=== PATIENT | female | born 1980 | race Caucasian/White ===

== ENCOUNTER 2016-11-03 20:35 | Emergency (ER) | payer OTHER ==
[~2016-11-03] VITALS: Ht 160 cm; Wt 72.6 kg
[~2016-11-03 20:35] MED LIST: CIPROFLOXACIN500 MG PO; DEPAKOTE500 MG PO; PYRIDIUM200 MG PO; XANAX1 MG PO
[2016-11-03 21:20] LABS: BASO # 0.1 10*3/uL (0.0-0.1); BASO % 1.2 % (0.0-1.0); EOS # 0.4 10*3/uL (0.0-0.4); EOS % 7.1 % (1.0-4.0); HEMATOCRIT 41.7 % (37.0-47.0); HEMOGLOBIN 13.7 g/dl (12.0-16.0); LYMPH # 2.4 10*3/uL (1.3-4.4); LYMPH % 45.7 % (27.0-41.0); MEAN CELL VOLUME 94.3 fl (81.0-99.0); MEAN CORPUSCULAR HGB CONC 32.9 g/dl (33.0-37.0); MEAN PLATELET VOLUME 11.2 fl (9.6-12.3); MONO # 0.6 10*3/uL (0.1-1.0); MONO % 12.1 % (3.0-9.0); NEUT # 1.8 10*3/uL (2.3-7.9); NEUT % 33.7 % (47.0-73.0); PLATELET COUNT AUTOMATED 153 10*3/uL (130-400); RED BLOOD COUNT 4.42 10*6/uL (4.10-5.10); WHITE BLOOD COUNT 5.2 10*3/uL (4.8-10.8)
[2016-11-03 21:32] LABS: BILIRUBIN NEGATIVE (NEGATIVE); BLOOD TRACE-INTACT (NEGATIVE); CLARITY CLEAR (CLEAR); COLOR YELLOW (YELLOW); GLUCOSE NEGATIVE (NEGATIVE); KETONE NEGATIVE (NEGATIVE); LEUKO ESTERASE NEGATIVE (NEGATIVE); NITRITE NEGATIVE (NEGATIVE); SPECIFIC GRAVITY <= 1.005 (1.005-1.030); UROBILINOGEN 0.2 E.U./dl (0.2-1.0)
[2016-11-03 21:35] LABS: ALBUMIN 3.4 gm/dl (3.1-4.5); ALKALINE PHOSPHATASE 63 U/L (45-117); BUN 5 mg/dl (7-24); CHLORIDE 106 mmol/L (98-107); CREATININE 0.78 mg/dL (0.55-1.02); LIPASE 135 U/L (73-393); POTASSIUM 3.7 mmol/L (3.5-5.1); SGOT/AST 10 IU/L (3-35); SGPT/ALT 15 U/L (12-78); SODIUM 139 mmol/L (136-145); TOTAL PROTEIN 7.2 gm/dL (6.4-8.2)
[2016-11-03 21:37] LABS: B-hCG (QUALITATIVE) NEGATIVE (NEGATIVE)
[2016-11-03 21:40] LABS: BACTERIA TRACE; WBC 0-2 wbc/hpf (0-5)
[2016-11-03 22:19] LABS: URINE AMPHETAMINES < 1000 (1000ng/ml); URINE BARBITURATES < 200 (200ng/ml); URINE BENZODIAZEPINES < 200 (200ng/ml); URINE CANNABINOIDS (THC) < 50 (50ng/ml); URINE COCAINE < 300 (300ng/ml); URINE METHADONE < 300 (300ng/ml); URINE OPIATES > 300 (300ng/ml)
[2016-11-03 22:20] LABS: URINE PHENCYCLIDINE < 25 (25ng/ml)
[2016-11-04] MEDS ORDERED: ZOFRAN ODT4 MG SL (01:36)
[2016-11-04] MEDS ORDERED: REGLAN5 MG PO (01:36)
== END 2016-11-04 02:00 | disposition home or self-care (01) ==
LOC: ED 20:35
PROVIDERS: Emergency Medicine Emergency Medical Services
DX: R10.11 Right upper quadrant pain (principal); F17.200 Nicotine dependence, unspecified, uncomplicated; Z79.899 Other long term (current) drug therapy; Z88.5 Allergy status to narcotic agent; Z88.0 Allergy status to penicillin; Z88.6 Allergy status to analgesic agent

== ENCOUNTER → 2016-11-06 | Outpatient (CLI) | payer OTHER ==
[~2016-11-06] MED LIST changes: +REGLAN5 MG PO; +ZOFRAN ODT4 MG SL
== END | disposition home or self-care (01) ==
LOC: US 05:53
DX: R10.11 Right upper quadrant pain (principal); R11.10 Vomiting, unspecified

== ENCOUNTER 2017-07-16 20:26 | Inpatient (IN) | payer OTHER ==
[~2017-07-16] VITALS: Ht 160 cm; Wt 75.0 kg
--- NOTE | ~2017-07-16 | PR ---
[place], [place] PROGRESS NOTE NAME: MARISOL BHAGAT UNIT #: [id number] ROOM: 530 DOCTOR: ABBY WEST MD,ABDULLAHI BIRTHDATE: [birth year] DOS: 07/19/2017 PULMONARY PROGRESS NOTE SUBJECTIVE: The patient noted comfortable at this time without any acute distress. She has not been noted symptoms of chest pain or abdominal pain. The patient has been getting intravenous antibiotic for acute pneumonia and other respiratory symptoms as well with tracheobronchitis. She has been started on Tamiflu for suspected influenza infection as well. She has not been noted any symptoms of fever or chills at this time. Denies symptoms of hemoptysis or chest pain. She would like to be discharged home as soon as possible. REVIEW OF SYSTEMS: She was denying any symptoms of nausea, vomiting. General weakness was noted. There were no symptoms of headache or diplopia. Remaining systems were reviewed, they were noted all negative. OBJECTIVE: VITAL SIGNS: Normal temperature, respiratory rate 20, heart rate of 78, blood pressure 123/76. Pulse oxygen saturation on 2 liters nasal cannula 91% saturation. HEENT: Examination shows head was atraumatic. Eyes nonicterus. NECK: Supple. CARDIOVASCULAR: S1, S2 audible. LUNGS: Noted with [id number] decreased breath sounds without any crackles. There is no wheezing. ABDOMEN: Soft, nontender. EXTREMITIES: Without any acute edema. LABORATORY DATA: The cultures brought from 16/07/2017 showed no bacterial growth. Rapid influenza testing of the nasopharyngeal area was noted negative for influenza A and B. Otherwise, ____ was obtained, which was pending. The sputum Gram stain of the patient from yesterday noted many white blood cells, moderate epithelial cells, few gram-positive cocci in pairs and chains and clusters with pending culture results. CTA of the chest was ordered by the primary care attending that was yesterday reviewed, does not show any evidence of pulmonary embolism. The patient noted patchy ground glass opacity noted in the lungs, mostly in the central distribution involving most of the low for this patient. There were no pleural fluid. There was no lymphadenopathy in the mediastinum. IMPRESSION: 1. Acute pneumonia, atypical including viral still considered and treated the patient with antiviral treatment as well as bacterial infection, treated with antibiotics. 2. Resolving ____ bronchial asthma as well. PLAN OF THERAPY: Continuation of the current plan of management with bronchodilators, oxygen supplementation. Monitor respiratory status closely. Continuation of other supportive therapy, plan of management and treatment. Usual care. Additional treatment changes will be made for the patient based on [place], [place] PROGRESS NOTE NAME: MARISOL BHAGAT UNIT #: [id number] ROOM: [facility] DOCTOR: ABBY WEST MD,ABDULLAHI BIRTHDATE: [birth year] the progression of the illness. ABDULLAHI MORA MD CM:PNTRANS [id number] ABDULLAHI WEST MD 07/20/17 0141 interface
--- NOTE | ~2017-07-16 | CON ---
[employer], [place] REPORT OF CONSULTATION NAME: MARISOL BHAGAT UNIT #: [id number] ROOM: 530 DOCTOR: ABDULLAHI STEIN MD BIRTHDATE: [birth year] DOS: 07/18/2017 PULMONARY CONSULTATION, EVALUATION, AND MANAGEMENT CONSULTATION REQUESTED BY: The hospitalist service. REASON FOR CONSULTATION: For assessment of the current ongoing acute respiratory complaints and also assess the patient for acute pneumonia. HISTORY OF PRESENT ILLNESS: This is a 36-year-old white female patient who has been admitted to the hospital on 07/16/2017 under the hospitalist services. The patient came into the Emergency Room, she started having increased symptoms of shortness of breath for the past 3 days associated with chest congestion and cough. The patient stated the cough has been noted nonproductive initially and currently started smoking cigarettes. The patient denies any symptoms of hemoptysis with that. The chest tightness with some wheezing was also reported by the patient. The patient's symptoms were also associated with some symptoms of fever or chills and night sweats as well as sore throat. She does have complaints of a chest pain previously with the deep breathing. REVIEW OF SYSTEMS: CONSTITUTIONAL SYMPTOMS: Fatigue and tiredness with symptoms of fever and chills noted at home. EYES: Denies any burning, redness, or discharge. EARS, NOSE, AND THROAT SYMPTOMS: Sore throat also reported by the patient on admission. GASTROINTESTINAL SYMPTOMS: Denies dysphagia, nausea, vomiting, diarrhea, abdominal pain, hematemesis, melena, or hematochezia. GENITOURINARY SYMPTOMS: Denies dysuria, suprapubic pain, or hematuria. MUSCULOSKELETAL SYMPTOMS: No acute joint pain, redness, or tenderness. SKIN: Denies abnormal lesions or rashes. CENTRAL NERVOUS SYSTEM: Denies dizziness, headache, diplopia, syncopal episodes, or tingling sensation of the extremities. Remaining systems were reviewed and they were noted all negative. PAST MEDICAL HISTORY: Known with: 1. COPD. 2. Crohn's disease. 3. Migraine headache. 4. Nicotine dependence. 5. Bipolar disorder with depression. PAST SURGICAL HISTORY: 1. Tubal ligation. 2. . SOCIAL HISTORY: The patient is . Currently smoking half a pack of cigarettes per day and has 2 children. She lives with a significant other at this time for 15 years. [employer], [place] REPORT OF CONSULTATION NAME: MARISOL BHAGAT UNIT #: [id number] ROOM: 530 DOCTOR: ABBY WEST MD,ABDULLAHI BIRTHDATE: [birth year] FAMILY HISTORY: Father with history of schizophrenia. Mother with lung cancer. HOME MEDICATIONS: Noted use of [place] and Imitrex. DRUG ALLERGY HISTORY: RECORDED ALLERGIES FOR CODEINE, PENICILLIN, PREDNISONE, AND TRAMADOL. PHYSICAL EXAMINATION: GENERAL: This is a 36-year-old female who has been currently noted resting on the bed without any acute distress at this time of assessment. Height of 5 feet 3 inches, weight of 165 pounds, and BMI 29.3. VITAL SIGNS: Normal temperature, respiratory rate 16-20, heart rate of 112-113, sinus tachycardia; and blood pressure 126/74-110/64. Pulse oxygen saturation on 2-1/2 liters nasal cannula was noted as 96% saturation. HEENT: On examination, head was atraumatic. Eyes, nonicterus. NECK: Supple. CARDIOVASCULAR SYSTEM: S1, S2 is audible. LUNGS: The patient was noted with moderate decreased breath sounds with expiratory wheezing without any crackles heard. ABDOMEN: Soft and nontender. Bowel sounds present. EXTREMITIES: The patient was noted without any edema, clubbing, or cyanosis. VISIBLE SKIN: No lesions or rashes. MUSCULOSKELETAL SYMPTOMS: The patient without any acute deformities. CENTRAL NERVOUS SYSTEM: Cranial nerves 2-12 intact. No focal deficit. MUSCULOSKELETAL EXAMINATION: Noted without any auscultated deformities. LABORATORY DATA: The CBC that was done on admission, normal WBC count, hemoglobin and hematocrit normal, and platelet count normal. CMP of the patient on 07/16/2017 noted normal BUN and creatinine. Lactic acid 1.3. CBC of the patient on 07/17/2017 was noted as normal CBC. The CMP of the patient that was done this morning, glucose 161, phosphorus 1.2, otherwise normal. PT and INR was noted normal this morning. DIAGNOSTIC DATA: The chest x-ray of the patient was suggestive of possibility of interstitial infiltration in the lower lungs. IMPRESSION: 1. The patient who has been currently admitted to the hospital was noted with current symptoms, which has been noted significant constitutional symptoms ongoing for the past few days. 2. Possibility of influenza infection with a viral infection. The current cause of the pneumonia could not be excluded. 3. Evidence of acute exacerbation of chronic obstructive pulmonary disease. 4. History of chronic nicotine dependence as well. 5. History of ALLERGY REPORTED TO THE PREDNISONE. PLAN OF MANAGEMENT: The patient has been ordered the assessment for the viral etiology including influenza and other viral etiology, which was available as a part of the panel for the patient to be ordered with nasopharyngeal swab. CT scan of the chest will be ordered for most definitive assessment of the [employer], [place] REPORT OF CONSULTATION NAME: MARISOL BHGAAT UNIT #: [id number] ROOM: [facility] DOCTOR: ABBY WEST MD,ABDULLAHI BIRTHDATE: [birth year] pneumonic infiltration. Decrease the use of Tamiflu for the patient until the influenza infection is excluded. Use the nicotine placement patches for this patient as well. Order the sputum for Gram stain and culture as well. Continue current antibiotics for the management of current pneumonia. Order the urine for Legionella antigen as well and the Streptococcus pneumoniae antigen in the urine. Additional treatment changes will be ordered based on the progression of the illness. Thanks for allowing me to participate in the care of this patient. ABDULLAHI MORA MD CM:CONSTR:REPORT OF CONSULTATION 1417 07/18/17 [id number] interface
--- NOTE | ~2017-07-16 | PR ---
[place], [place] PROGRESS NOTE NAME: MARISOL BHAGAT UNIT #: [id number] ROOM: 530 DOCTOR: ABBY WEST MD,ABDULLAHI BIRTHDATE: [birth year] DOS: 07/20/2017 SUBJECTIVE: The patient has been noted quite comfortable at this time, resting in the bed, sitting on the chair, eager to be discharged. There was no coughing, shortness of breath, chest pain, other acute symptoms were reported by the patient. Denies symptoms of nausea and vomiting. OBJECTIVE: VITAL SIGNS: For the patient which were recorded at noon, respiratory rate of 18, temperature normal, heart rate 98, blood pressure 101/69. The pulse oxygen saturation on room air 99% saturation. HEENT: Head was atraumatic. Eyes nonicterus. NECK: Supple. CARDIOVASCULAR: S1, S2 audible. LUNGS: Noted clear to auscultation bilaterally. ABDOMEN: Soft, nontender. Bowel sounds present. EXTREMITIES: Without any acute edema. IMPRESSION: Resolving acute exacerbation of bronchial asthma as well as atypical pneumonia for this patient as well. PLAN OF THERAPY: The patient could be discharged home on oral medication. Outpatient followup was recommended. Abstinence of tobacco use was recommended strongly for the patient for future. ABDULLAHI MORA MD CM:PNTRANS [phone] ABDULLAHI WEST MD 07/22/17 0100 interface
[2017-07-16 20:28] VITALS: BP 131/90
[2017-07-16 21:05] LABS: BASO # 0.1 10*3/uL (0.0-0.1); BASO % 0.8 % (0.0-1.0); EOS # 0.4 10*3/uL (0.0-0.4); HEMOGLOBIN 13.6 g/dl (12.0-16.0); LYMPH # 1.8 10*3/uL (1.3-4.4); LYMPH % 18.2 % (27.0-41.0); MEAN CELL VOLUME 93.8 fl (81.0-99.0); MEAN CORPUSCULAR HGB 31.1 pg (27.0-31.0); MEAN CORPUSCULAR HGB CONC 33.2 g/dl (33.0-37.0); MEAN PLATELET VOLUME 11.2 fl (9.6-12.3); MONO # 0.7 10*3/uL (0.1-1.0); MONO % 7.2 % (3.0-9.0); NEUT # 6.9 10*3/uL (2.3-7.9); NEUT % 69.6 % (47.0-73.0); PLATELET COUNT AUTOMATED 172 10*3/uL (130-400); RED BLOOD COUNT 4.37 10*6/uL (4.10-5.10); RED CELL DISTRI WIDTH 11.9 % (0-14.5); WHITE BLOOD COUNT 9.9 10*3/uL (4.8-10.8)
[2017-07-16 21:19] LABS: ALBUMIN 3.2 gm/dl (3.1-4.5); ALKALINE PHOSPHATASE 64 U/L (45-117); BUN 8 mg/dl (7-24); CHLORIDE 105 mmol/L (98-107); CREATININE 0.62 mg/dL (0.55-1.02); POTASSIUM 3.5 mmol/L (3.5-5.1); SGOT/AST 26 IU/L (3-35); SGPT/ALT 27 U/L (12-78); SODIUM 139 mmol/L (136-145); TOTAL PROTEIN 6.5 gm/dL (6.4-8.2)
[2017-07-16 22:00] VITALS: BP 122/77
[2017-07-16 23:00] VITALS: BP 118/72
[2017-07-17 00:30] VITALS: BP 129/82
[2017-07-17 05:51] LABS: HEMATOCRIT 39.5 % (37.0-47.0); HEMOGLOBIN 12.9 g/dl (12.0-16.0); MEAN CORPUSCULAR HGB 30.7 pg (27.0-31.0); MEAN CORPUSCULAR HGB CONC 32.7 g/dl (33.0-37.0); MEAN PLATELET VOLUME 11.5 fl (9.6-12.3); PLATELET COUNT AUTOMATED 171 10*3/uL (130-400); RED CELL DISTRI WIDTH 12.1 % (0-14.5); WHITE BLOOD COUNT 8.6 10*3/uL (4.8-10.8)
[2017-07-17 06:00] LABS: ALBUMIN 2.9 gm/dl (3.1-4.5); ALKALINE PHOSPHATASE 59 U/L (45-117); BUN 6 mg/dl (7-24); CHLORIDE 108 mmol/L (98-107); CHOLESTEROL 122 mg/dL (<200); CREATININE 0.64 mg/dL (0.55-1.02); HDL CHOLESTEROL 56 mg/dl (40-60); LDL CHOLESTEROL 60 mg/dL (9-159); PHOSPHOROUS 1.2 mg/dL (2.5-4.9); POTASSIUM 3.8 mmol/L (3.5-5.1); SGOT/AST 22 IU/L (3-35); SGPT/ALT 28 U/L (12-78); SODIUM 140 mmol/L (136-145); TOTAL PROTEIN 6.5 gm/dL (6.4-8.2); TRIGLYCERIDES 32 mg/dl (<150); VLDL CHOLESTEROL 6 mg/dL (6-40)
[2017-07-17 06:05] LABS: THYROID STIM HORMONE (HS) 0.308 uIU/ml (0.358-4.75)
[2017-07-17 06:15] LABS: TOTAL CELLS COUNTED 100 #CELLS
[2017-07-17 06:16] LABS: PLATELET SUFFICIENCY NORMAL (NORMAL)
[2017-07-17 07:32] LABS: VITAMIN D, 25-HYDROXY 20.4 ng/mL (30-100)
[2017-07-17 08:00] VITALS: BP 128/78
[2017-07-17] MEDS ORDERED: NORCO 5-325 TA1 EACH PO (09:52)
[2017-07-17] MEDS ORDERED: IMITREX50 MG PO (09:54)
[2017-07-17 12:00] VITALS: BP 114/63
[2017-07-17 16:00] VITALS: BP 126/74
[2017-07-17 20:00] VITALS: BP 111/72
[2017-07-18] VITALS: BP 110/64
[2017-07-18 08:00] VITALS: BP 124/74
[2017-07-18 12:00] VITALS: BP 113/85
[2017-07-18 16:00] VITALS: BP 151/92
[2017-07-18 20:00] VITALS: BP 117/78
[2017-07-19] VITALS: BP 116/75
[2017-07-19 08:00] VITALS: BP 123/76
[2017-07-19 12:00] VITALS: BP 119/78
[2017-07-19 16:00] VITALS: BP 124/82
[2017-07-19 20:00] VITALS: BP 125/66
[2017-07-20] VITALS: BP 106/57
[2017-07-20 06:24] LABS: BASO % 0.1 % (0.0-1.0); EOS % 0.1 % (1.0-4.0); HEMATOCRIT 37.5 % (37.0-47.0); HEMOGLOBIN 12.2 g/dl (12.0-16.0); LYMPH # 1.3 10*3/uL (1.3-4.4); LYMPH % 9.9 % (27.0-41.0); MEAN CELL VOLUME 95.2 fl (81.0-99.0); MEAN CORPUSCULAR HGB CONC 32.5 g/dl (33.0-37.0); MONO # 0.9 10*3/uL (0.1-1.0); MONO % 6.4 % (3.0-9.0); NEUT # 11.1 10*3/uL (2.3-7.9); PLATELET COUNT AUTOMATED 234 10*3/uL (130-400); RED BLOOD COUNT 3.94 10*6/uL (4.10-5.10); RED CELL DISTRI WIDTH 12.3 % (0-14.5); WHITE BLOOD COUNT 13.6 10*3/uL (4.8-10.8)
[2017-07-20 12:28] VITALS: BP 101/69
[2017-07-20] MEDS ORDERED: PREDNISONE10 MG PO (13:40)
[2017-07-20] MEDS ORDERED: TAMIFLU 75MG CA75 MG PO (13:40)
[2017-07-20] MEDS ORDERED: LEVAQUIN750 M1 PO (13:40)
[2017-07-20] MEDS ORDERED: B12100 MC1 PO (13:40)
[2017-07-20] MEDS ORDERED: VITAMIN D22000 UNIT PO (13:51)
[2017-07-20] MEDS ORDERED: NORCO 5-325 TA1 EACH PO (14:32)
[2017-07-20] MEDS ORDERED: VENTOLIN 02.5 MG/3 M INH (14:50)
== END 2017-07-20 14:55 | disposition home or self-care (01) | DRG 871 ==
LOC: ED 20:26 → EDHOLD 23:32 → 5E 23:32
PROVIDERS: Emergency Medicine; Internal Medicine; Internal Medicine Hospice and Palliative Medicine
DX: A41.9 Sepsis, unspecified organism (principal); J96.01 Acute respiratory failure with hypoxia; J44.0 Chronic obstructive pulmonary disease with (acute) lower respiratory infection; J15.6 Pneumonia due to other Gram-negative bacteria; E44.1 Mild protein-calorie malnutrition; J45.901 Unspecified asthma with (acute) exacerbation; E83.39 Other disorders of phosphorus metabolism; K50.90 Crohn's disease, unspecified, without complications; J44.1 Chronic obstructive pulmonary disease with (acute) exacerbation; F31.30 Bipolar disorder, current episode depressed, mild or moderate severity, unspecified; E53.8 Deficiency of other specified B group vitamins; F17.210 Nicotine dependence, cigarettes, uncomplicated; E87.8 Other disorders of electrolyte and fluid balance, not elsewhere classified; D72.810 Lymphocytopenia; R73.9 Hyperglycemia, unspecified; E66.3 Overweight; G43.909 Migraine, unspecified, not intractable, without status migrainosus; Z68.29 Body mass index [BMI] 29.0-29.9, adult; Z88.6 Allergy status to analgesic agent; Z88.5 Allergy status to narcotic agent; Z71.6 Tobacco abuse counseling; Z88.0 Allergy status to penicillin; Z88.8 Allergy status to other drugs, medicaments and biological substances; Z79.01 Long term (current) use of anticoagulants; Z79.899 Other long term (current) drug therapy; Z98.891 History of uterine scar from previous surgery; Z98.51 Tubal ligation status; Z81.8 Family history of other mental and behavioral disorders; Z80.1 Family history of malignant neoplasm of trachea, bronchus and lung

== ENCOUNTER 2020-09-15 00:05 | Emergency (ER) | payer OTHER ==
[~2020-09-15] VITALS: Ht 160 cm; Wt 70.8 kg
[~2020-09-15 00:05] MED LIST changes: +B12100 MC1 PO; +DOXYCYCLINE100 M3 PO; +IMITREX50 MG PO; +LEVAQUIN750 M1 PO; +NORCO 5-325 TA1 EACH PO; +PREDNISONE10 MG PO; +PROAIR HFA8.5 GM INH; +TAMIFLU 75MG CA75 MG PO; +TESSALON PERLE100 M1 PO; +VENTOLIN 02.5 MG/3 M INH; +VITAMIN D22000 UNIT PO
== END 2020-09-15 00:42 | disposition left against medical advice (07) ==
LOC: ED 00:05
DX: J40 Bronchitis, not specified as acute or chronic (principal); F17.200 Nicotine dependence, unspecified, uncomplicated; Z98.890 Other specified postprocedural states; Z98.51 Tubal ligation status; Z79.899 Other long term (current) drug therapy; Z88.5 Allergy status to narcotic agent; Z88.0 Allergy status to penicillin; Z88.6 Allergy status to analgesic agent

== ENCOUNTER 2022-12-15 14:30 | Emergency (ER) | payer OTHER ==
[~2022-12-15] VITALS: Ht 160 cm; Wt 72.6 kg
[2022-12-15 15:27] LABS: BASO # 0.1 10*3/uL (0.0-0.1); BASO % 0.7 % (0.0-1.0); EOS # 0.4 10*3/uL (0.0-0.4); EOS % 3.7 % (1.0-4.0); HEMATOCRIT 39.1 % (37.0-47.0); LYMPH # 2.6 10*3/uL (1.3-4.4); LYMPH % 24.9 % (27.0-41.0); MEAN CELL VOLUME 96.5 fl (81.0-99.0); MEAN CORPUSCULAR HGB 31.1 pg (27.0-31.0); MEAN CORPUSCULAR HGB CONC 32.2 g/dl (33.0-37.0); MEAN PLATELET VOLUME 11.1 fl (9.6-12.3); MONO # 0.9 10*3/uL (0.1-1.0); MONO % 8.8 % (3.0-9.0); NEUT # 6.5 10*3/uL (2.3-7.9); NEUT % 61.7 % (47.0-73.0); PLATELET COUNT AUTOMATED 216 10*3/uL (130-400); RED BLOOD COUNT 4.05 10*6/uL (4.10-5.10); RED CELL DISTRI WIDTH 12.1 % (0-14.5); WHITE BLOOD COUNT 10.5 10*3/uL (4.8-10.8)
[2022-12-15 15:48] LABS: ALKALINE PHOSPHATASE 66 U/L (46-116); BUN 5 mg/dl (9-23); CHLORIDE 103 mmol/L (98-107); POTASSIUM 3.8 mmol/L (3.4-5.1); SGPT/ALT 51 U/L (5-49); TOTAL PROTEIN 6.7 gm/dL (6.0-8.0)
[2022-12-15] MEDS ORDERED: CLINDAMYCIN HC300 MG PO (16:57)
[2022-12-15] MEDS ORDERED: VARENICLINE TART1 MG PO (16:57)
[2022-12-15] MEDS ORDERED: CEPHALEXIN500 M1 PO (16:57)
== END 2022-12-15 17:47 | disposition home or self-care (01) ==
LOC: ED 14:30
PROVIDERS: Emergency Medicine
DX: L03.211 Cellulitis of face (principal); J44.9 Chronic obstructive pulmonary disease, unspecified; I10 Essential (primary) hypertension; F31.9 Bipolar disorder, unspecified; F41.9 Anxiety disorder, unspecified; Z88.0 Allergy status to penicillin; Z88.5 Allergy status to narcotic agent; Z88.8 Allergy status to other drugs, medicaments and biological substances; Z98.890 Other specified postprocedural states; Z98.51 Tubal ligation status; F17.200 Nicotine dependence, unspecified, uncomplicated

== ENCOUNTER 2023-09-08 13:29 | Emergency (ER) | payer OTHER ==
[~2023-09-08 13:29] MED LIST changes: +CEPHALEXIN500 M1 PO; +CLINDAMYCIN HC300 MG PO; +VARENICLINE TART1 MG PO
== END 2023-09-08 14:39 | disposition left against medical advice (07) ==
LOC: ED 13:29
DX: R05.9 Cough, unspecified (principal); R06.02 Shortness of breath; Z88.0 Allergy status to penicillin; Z88.5 Allergy status to narcotic agent; Z88.6 Allergy status to analgesic agent; Z53.21 Procedure and treatment not carried out due to patient leaving prior to being seen by health care provider

== ENCOUNTER → 2023-11-18 | Outpatient (CLI) | payer OTHER ==
[2023-11-18 16:12] LABS: BASO # 0.1 10*3/uL (0.0-0.1); BASO % 0.7 % (0.0-1.0); EOS # 0.3 10*3/uL (0.0-0.4); HEMATOCRIT 41.9 % (37.0-47.0); LYMPH # 2.4 10*3/uL (1.3-4.4); LYMPH % 29.2 % (27.0-41.0); MEAN CELL VOLUME 93.5 fl (81.0-99.0); MEAN CORPUSCULAR HGB 31.3 pg (27.0-31.0); MEAN CORPUSCULAR HGB CONC 33.4 g/dl (33.0-37.0); MEAN PLATELET VOLUME 10.6 fl (9.6-12.3); MONO # 0.6 10*3/uL (0.1-1.0); MONO % 7.2 % (3.0-9.0); NEUT # 4.9 10*3/uL (2.3-7.9); NEUT % 58.7 % (47.0-73.0); PLATELET COUNT AUTOMATED 176 10*3/uL (130-400); RED BLOOD COUNT 4.48 10*6/uL (4.10-5.10); RED CELL DISTRI WIDTH 12.6 % (0-14.5); WHITE BLOOD COUNT 8.3 10*3/uL (4.8-10.8)
[2023-11-18 16:36] LABS: ALKALINE PHOSPHATASE 61 U/L (46-116); BUN 12 mg/dl (9-23); CHLORIDE 106 mmol/L (98-107); CHOLESTEROL 98 mg/dL (<200); LDL CHOLESTEROL 34 mg/dL (9-159); POTASSIUM 3.9 mmol/L (3.4-5.1); SGPT/ALT 46 U/L (5-49); TOTAL PROTEIN 7.1 gm/dL (6.0-8.0); TRIGLYCERIDES 59 mg/dl (<150)
== END | disposition home or self-care (01) ==
LOC: LAB 15:36
PROVIDERS: ATTEND Nurse Practitioner Family
DX: Z11.4 Encounter for screening for human immunodeficiency virus [HIV] (principal); J44.9 Chronic obstructive pulmonary disease, unspecified; Z00.00 Encounter for general adult medical examination without abnormal findings; E66.9 Obesity, unspecified; K50.911 Crohn's disease, unspecified, with rectal bleeding

== ENCOUNTER 2024-04-24 15:04 | Emergency (ER) | payer OTHER ==
[~2024-04-24] VITALS: Ht 160 cm; Wt 83.9 kg
[2024-04-24 16:00] LABS: BASO # 0.1 10*3/uL (0.0-0.1); BASO % 0.7 % (0.0-1.0); EOS # 0.3 10*3/uL (0.0-0.4); EOS % 3.5 % (1.0-4.0); HEMATOCRIT 41.6 % (37.0-47.0); MEAN CELL VOLUME 93.5 fl (81.0-99.0); MEAN CORPUSCULAR HGB 30.3 pg (27.0-31.0); MEAN CORPUSCULAR HGB CONC 32.5 g/dl (33.0-37.0); MEAN PLATELET VOLUME 10.9 fl (9.6-12.3); MONO # 0.5 10*3/uL (0.1-1.0); NEUT # 5.4 10*3/uL (2.3-7.9); NEUT % 62.7 % (47.0-73.0); PLATELET COUNT AUTOMATED 198 10*3/uL (130-400); RED BLOOD COUNT 4.45 10*6/uL (4.10-5.10); WHITE BLOOD COUNT 8.6 10*3/uL (4.8-10.8)
[2024-04-24 16:26] LABS: BUN 10 mg/dl (9-23); CHLORIDE 106 mmol/L (98-107); POTASSIUM 4.1 mmol/L (3.4-5.1)
== END 2024-04-24 18:11 | disposition left against medical advice (07) ==
LOC: ED 15:04
PROVIDERS: Nurse Practitioner Family
DX: S89.92XA Unspecified injury of left lower leg, initial encounter (principal); S61.402A Unspecified open wound of left hand, initial encounter; S61.401A Unspecified open wound of right hand, initial encounter; S51.802A Unspecified open wound of left forearm, initial encounter; S51.801A Unspecified open wound of right forearm, initial encounter; S81.002A Unspecified open wound, left knee, initial encounter; F17.210 Nicotine dependence, cigarettes, uncomplicated; M25.562 Pain in left knee; Z88.0 Allergy status to penicillin; Z88.5 Allergy status to narcotic agent; Z88.8 Allergy status to other drugs, medicaments and biological substances; Z79.899 Other long term (current) drug therapy; Z79.2 Long term (current) use of antibiotics; Z98.890 Other specified postprocedural states; Z98.51 Tubal ligation status; W17.89XA Other fall from one level to another, initial encounter; Y93.89 Activity, other specified; Y92.89 Other specified places as the place of occurrence of the external cause; Y99.8 Other external cause status

== ENCOUNTER 2024-06-20 22:21 | Emergency (ER) | payer OTHER ==
[~2024-06-20] VITALS: Ht 160 cm; Wt 72.6 kg
== END 2024-06-21 01:12 | disposition home or self-care (01) ==
LOC: ED 22:21
DX: M77.32 Calcaneal spur, left foot (principal); F17.200 Nicotine dependence, unspecified, uncomplicated; Z88.0 Allergy status to penicillin; Z88.5 Allergy status to narcotic agent; Z88.8 Allergy status to other drugs, medicaments and biological substances; Z79.899 Other long term (current) drug therapy; Z79.2 Long term (current) use of antibiotics; Z98.890 Other specified postprocedural states

== ENCOUNTER → 2024-10-09 | Outpatient (CLI) | payer OTHER | END | disposition home or self-care (01) | LOC: ORTHO 02:40 | PROVIDERS: ATTEND Orthopaedic Surgery | DX: M17.12 Unilateral primary osteoarthritis, left knee (principal); M76.892 Other specified enthesopathies of left lower limb, excluding foot; M25.562 Pain in left knee ==